=== PATIENT | female | born 2000 | race Caucasian/White ===

== ENCOUNTER 2018-12-10 10:36 | Emergency (ER) | payer OTHER, SELFPAY ==
[2018-12-10 10:38] VITALS: BP 116/68; PULSE 100; RESP 18; TEMP 36.6; O2SAT 98; BMI 30.4
--- NOTE | 2018-12-10 10:49 | ED.VIS.GEN ---
History of Present Illness Chief Complaint: Cellulitis Informant: Patient Onset: Days - Onset 7 days ago Context: Sudden Onset Timing: Continuous Quality: Pain and burning Location: Lower lip and gums Current Severity: Mild Maximum Severity: Moderate Worsened by: Touch and drinking or eating Relieved by: Nothing Associated Symptoms: Swelling and tenderness anterior neck Narrative: Patient is a 18-year-old who presents from urgent care because they feel she bit her lip. She states she did not bite her lip. She denies fever or chills. Denies photophobia, neck pain or neck stiffness. She does complain of lip pain, gum pain and throat pain. She also complains of swelling to the anterior neck bilaterally. She denies any other symptoms. Prior similar symptoms: No Recent Illness/Hospitalization: No - Past Medical History (1) No significant past medical history Status: Acute Past Medical History - Allergies and Home Meds Allergies/Adverse Reactions: Allergies Penicillins Allergy (Verified 12/10/18 10:40) Hives Prior records reviewed: No Past Medical History: None Surgical History: no surgical history Lives: Spouse/ Significant Other Drugs: None Review of Systems General: Reports: Malaise. Denies: Chills, Fever, Subjective, Sweats Eyes: Denies: Visual changes - bilaterally, Blurred Vision - bilaterally, Diplopia ENT: Reports: Sore throat, - - Lip pain and swelling as well as gum pain. Denies: Rhinorrhea Musculoskeletal: Denies: Back pain, Swelling, Extremity Pain Neurological: Denies: Headache, Weakness, Parasthesia, Numbness Hematologic: Denies: Easy bruising, Easy bleeding Allergy: Denies: Uticaria, Swelling of the mouth, Swelling of the tongue Physical Exam Vital Signs/Narrative: Vital Signs Temp Pulse Resp BP Pulse Ox 12/10/18 10:38 98 F 100 18 116/68 98 General: Well nourished, Well developed, No Acute Distress Head: Normocephalic, Atraumatic Eyes: Perrl, EOMI. Negative for: Pale conjunctiva, Scleral icterus, - ENT: Moist mucous membranes, No rhinorrhea, TM's clear, - - Assertive lesion noted buccal surface of lower lip. There is also inflammation of the gums with 2 small ulcerations noted. There is 2 red spots noted soft palate. Uvula is midline. Trachea is midline. There is no stridor. She does have bilateral cervical lymphadenopathy. There is no nuchal rigidity. Neck: Supple, No JVD. Negative for: Nontender, No lymphadenopathy Cardiovascular: Regular rate, Regular rhythm, No murmurs, Normal S1, Normal S2 Respiratory: No distress Skin: Normal color, No rash, No Trauma. Negative for: Cyanosis, Diaphoresis, Jaundice Neurological: Alert, Oriented x3, Cranial nerves II-XII grossly intact, Normal Strength, Normal Sensation Psychological: Normal affect, Normal Mood Diagnostic/Tx/Re-eval - Medical Decision Making Patient's history and physical exam is consistent with cold sores, type I HSV infection. There is no evidence of cellulitis. Patient was informed that there is no treatment since she asked. She was prescribed Magic mouthwash. Findings are not consistent with infection and since there is no history of trauma this is not secondary to her biting her left. ED Disposition - Plan for ED Patient: Disposition: Home or Assisted Living Diagnosis: Primary HSV infection with gingivostomatitis Instructions: ED Herpes Simplex Virus Type 1 Prescriptions: Magic Mouth Wash 10 ml PO Q4H PRN PRN #480 ml PRN Reason: Mouth pain Referrals: Diana Theodore [NON-STAFF] - 10-14 Days if not better
[2018-12-10 11:09] VITALS: BP 105/71; PULSE 88; RESP 16
== END 2018-12-10 11:39 | disposition home or self-care (01) ==
LOC: ED 11:35
PROVIDERS: Emergency Provider Emergency Medicine; Family Provider Family Medicine; PCP Family Medicine
DX: B00.2 Herpesviral gingivostomatitis and pharyngotonsillitis (principal); Z88.0 Allergy status to penicillin
CPT/HCPCS: 99282

== ENCOUNTER 2020-04-05 01:12 | Emergency (ER) | payer BC, SELFPAY ==
[2020-04-05 01:13] VITALS: BP 132/78; PULSE 84; RESP 16; TEMP 36.8; O2SAT 98; BMI 33.5
--- NOTE | 2020-04-05 01:28 | ED.VIS.GI ---
History of Present Illness Chief Complaint: Abd Pain Informant: Patient - Abdominal Pain/Flank Pain Onset: Today Context: Gradual Onset Timing: Continuous Quality: Aching, Cramping Location: LUQ Current Severity: Moderate Maximum Severity: Moderate Worsened by: Nothing Relieved by: Nothing - Nausea/Vomiting/Emesis GI Symptom: Negative for: Nausea, Vomiting - Diarrhea/Melena/Hematochezia GI Symptom: Diarrhea, Hematochezia Onset: Today Stool Quality: Loose, Mucous, ADRIÁN per rectum - Small amount Episodes: 1 Associated Symptoms: Negative for: Dysuria, Frequency, Hematuria, Urgency Narrative: Patient states she has been feeling like she had acid reflux for the past week or 2, and has had mild versions of this left upper quadrant pain as well as loose stool off and on but only once or twice a day when she has it. Today it has been worse and she had mucus with some small amount of blood in the loose stool that she had today. No nausea or vomiting. No fevers or chills. No pulmonary symptoms or chest discomfort. No back discomfort. No urinary symptoms. Past Medical History - Allergies and Home Meds Allergies/Adverse Reactions: Allergies Penicillins Allergy (Verified 12/10/18 10:40) Hives Primary Care Physician: Darrell Vega MD [Primary Care Provider] - Past Medical History: None Surgical History: no surgical history Smoking Status: Never smoker Review of Systems General: Denies: Chills, Fever, Sweats Eyes: Denies: Visual changes - bilaterally, Diplopia ENT: Denies: Bilateral ear pain, Rhinorrhea, Sore throat Cardiovascular: Denies: Chest pain, Palpitations Respiratory: Denies: Dyspnea, Cough, Dyspnea on exertion Gastrointestinal: Reports: Abdominal pain, Diarrhea, Hematochezia. Denies: Nausea, Vomiting, Melena Genitourinary: Denies: Dysuria, Hematuria, Frequency Musculoskeletal: Denies: Neck pain, Back pain, Swelling, Extremity Pain Skin: Denies: Rash, Wounds Neurological: Denies: Headache, Weakness, Numbness Physical Exam Vital Signs/Narrative: Vital Signs Temp Pulse Resp BP Pulse Ox 04/05/20 01:13 98.3 F 84 16 132/78 H 98 Inital Vital Signs reviewed: Yes General: Well nourished, Well developed, No Acute Distress Head: Normocephalic, Atraumatic Eyes: Perrl, EOMI ENT: Moist mucous membranes, No rhinorrhea Neck: Supple, Nontender Cardiovascular: Regular rate, Regular rhythm, No murmurs Respiratory: No distress, CTA bilaterally, Chest nontender Abdomen: Soft, Nondistended, Normal bowel sounds, Tender - Mild, high left upper quadrant. Otherwise nontender.. Negative for: Guarding, Rebound tenderness Back: Nontender, Normal Inspection. Negative for: CVA tenderness Extremities: Nontender, No edema Skin: Normal color, No rash, No Trauma Neurological: Alert, Oriented x3, Cranial nerves II-XII grossly intact, Normal Strength, Normal Sensation, Normal Gait Psychological: Normal affect, Normal Mood Diagnostic/Tx/Re-eval Laboratory Results 04/05/20 04/05/20 04/05/20 01:45 01:45 01:55 WBC 8.3 RBC 4.60 Hgb 13.7 Hct 41.2 MCV 89.6 MCH 29.8 MCHC 33.3 RDW Std Deviation 37.8 RDW Coeff of Cristin 11.7 Plt Count 314 MPV 9.8 Immature Gran % (Auto) 0.200 Neut % (Auto) 44.5 L Lymph % (Auto) 45.6 H Mclennan % (Auto) 7.9 Eos % (Auto) 1.3 Baso % (Auto) 0.5 Absolute Neuts (auto) 3.7 Absolute Lymphs (auto) 3.79 Nucleated RBC % 0 Sodium Potassium Chloride Carbon Dioxide Anion Gap BUN Creatinine Estim Creat Clear Calc Est GFR (MDRD) Af Amer Est GFR (MDRD) Non-Af BUN/Creatinine Ratio Glucose Calcium Urine Color Yellow Urine Clarity Clear Urine pH 6.0 Ur Specific [place] 1.020 Urine Protein Negative Urine Glucose (UA) Normal Urine Ketones Negative Urine Occult Blood 10 H Urine Nitrite Negative Urine Bilirubin Negative Urine Urobilinogen Normal Ur Leukocyte Esterase Negative Urine RBC 0-5 SEEN Urine WBC 0-5 SEEN Ur Squamous Epith Cells 0-5 SEEN Urine Bacteria 1+ Urine Mucus 0 SEEN Urine Test Negative 04/05/20 01:55 WBC RBC Hgb Hct MCV MCH MCHC RDW Std Deviation RDW Coeff of Cristin Plt Count MPV Immature Gran % (Auto) Neut % (Auto) Lymph % (Auto) Mclennan % (Auto) Eos % (Auto) Baso % (Auto) Absolute Neuts (auto) Absolute Lymphs (auto) Nucleated RBC % Sodium 139 Potassium 3.8 Chloride 106 Carbon Dioxide 28.0 Anion Gap 5 BUN 13 Creatinine 0.78 Estim Creat Clear Calc 98.52 Est GFR (MDRD) Af Amer 120 Est GFR (MDRD) Non-Af 99 BUN/Creatinine Ratio 16.7 Glucose 92 Calcium 9.0 Urine Color Urine Clarity Urine pH Ur Specific [place] Urine Protein Urine Glucose (UA) Urine Ketones Urine Occult Blood Urine Nitrite Urine Bilirubin Urine Urobilinogen Ur Leukocyte Esterase Urine RBC Urine WBC Ur Squamous Epith Cells Urine Bacteria Urine Mucus Urine Test - Medical Decision Making Patient's labs, , urine are all normal. She is feeling better after GI cocktail and Toradol. Her symptoms suggest the possibility of some type of inflammatory colitis. She could also be having stomach pain along with the reflux symptoms she is describing, however that would not describe the mucousy bloody diarrhea she had the day. She only had that once however. I recommend following up with her family doctor, if she has persistent symptoms of colitis, she may need to be referred to GI. She sees a doctor in the [facility] area. We will place her on PPI and prn dicyclomine for now. She is comfortable with that plan. ED Disposition - Plan for ED Patient: Disposition: Home or Assisted Living Diagnosis: Left upper quadrant abdominal pain, Bloody diarrhea Instructions: ED PEPTIC ULCER vs GASTRITIS Prescriptions: Dicyclomine HCl [Bentyl] 20 mg PO Q6H PRN #20 cap PRN Reason: abdominal pain Prescription Printed Pantoprazole Sodium [Protonix] 40 mg PO DAILY #30 tab Prescription Printed Referrals: Darrell Vega MD [Primary Care Provider] - 1 Week
[2020-04-05] MEDS: Ketorolac 30 MG/ML Syringe IV (01:46)
[2020-04-05] MEDS: Dicyclomine 10 MG Capsule 20 MG PO (01:46)
[2020-04-05] MEDS: Mag Hydrox/Al Hydrox/Simeth 30 ML UDC PO (01:47)
[2020-04-05 01:59] LABS: Mucous, Urine 0 SEEN /hpf (<or=2+)
[2020-04-05 02:02] LABS: Color, Urine Yellow (Yellow); Glucose, Dipstick Normal (Normal); Ketone-Dipstick Negative (Negative); Leukocyte Esterase-Dipstick Negative /ul (Negative); Nitrite-Dipstick Negative (Negative); Occult Blood-Urine 10 /ul (Negative); Protein-Dipstick Negative (Negative); Urine Bilirubin Dipstick Negative (Negative); Urine Clarity Clear (Clear); Urine Urobilinogen Normal (Normal)
[2020-04-05 02:04] LABS: Absolute Lymphocyte Count 3.79 X10^3/uL (0.83-4.51); Absolute Neutrophil Count 3.7 X10^3/uL (2.0-7.7); Basophil# 0.04 X10^3/uL; Basophil% 0.5 % (0-1); Eosinophil# 0.11 X10^3/uL; Eosinophils% 1.3 % (0-5); Hematocrit 41.2 % (37-47); Hemoglobin 13.7 g/dL (12.0-15.0); Lymphocyte # 3.79 X10^3/ul (4.0); Lymphocyte % 45.6 % (19-41); Mean Corp Hgb Conc 33.3 g/dL (32-36); Mean Corpuscular Hgb 29.8 pg (27.0-32.0); Mean Corpuscular Volume 89.6 fL (81-99); Mean Platelet Vol. 9.8 fl (6.2-12.0); Monocyte# 0.66 X10^3/uL; Monocyte% 7.9 % (0-10); NRBC Flagged by Analyzer 0 % (0-5); Neutrophil % 44.5 % (47-70); Platelet Count 314 K/mm3 (150-450); RBC Distribution Width CV 11.7 % (11.6-14.6); RBC Distribution Width SD 37.8 fl (35.1-43.9); White Blood Count 8.3 K/mm3 (4.4-11.0)
[2020-04-05 02:05] LABS: Internal QC Validated? YES +Cl - CLEAR BKGD; Pregnancy, Urine Negative Negative
[2020-04-05 02:09] LABS: Bacteria 1+ /hpf (None Seen)
[2020-04-05 02:10] LABS: Red Blood Cells-Urine 0-5 SEEN /hpf (0-5); Squamous Epithelial Cells - UA 0-5 SEEN /hpf (5-10); White Blood Cells 0-5 SEEN /hpf (0-5)
[2020-04-05 02:24] LABS: Anion Gap 5 (5-15); BUN 13 mg/dL (7-18); BUN/Creat Ratio 16.7 RATIO (10-20); Chloride 106 mmol/L (98-107); Creatinine, Serum 0.78 mg/dL (0.55-1.02); EST Glomerular Filtration Rate 99 mL/min (>60); Est Glom Filt Rate - Afr Amer 120 mL/min (>60); Estimated Creatinine Clearance 98.52 ml/min; Glucose 92 mg/dL (74-106); Potassium 3.8 mmol/L (3.5-5.1); Sodium Level 139 mmol/L (136-145)
[2020-04-05 02:31] VITALS: BP 123/70; PULSE 75; RESP 15; O2SAT 98
== END 2020-04-05 02:46 | disposition home or self-care (01) ==
PROVIDERS: Emergency Provider Emergency Medicine; PCP Family Medicine
DX: R10.12 Left upper quadrant pain (principal); K92.1 Melena
CPT/HCPCS: 80048; 81001; 81025; 85025; 96374; 99284; A4216